=== PATIENT | male | born 1995 | race Two or more races ===

== ENCOUNTER 2017-01-02 23:03 | Emergency (ER) | payer OTHER ==
[~2017-01-02] VITALS: Ht 175.3 cm; Wt 63.5 kg
--- NOTE | 2017-01-02 23:17 | NUR ---
DR. GUZMAN IS AT THE BEDSIDE.
[2017-01-02] MEDS ORDERED: SULFAMETH/TRIMETH 800/160 MG 1 UDTAB TABLET PO ONE ×2 (23:26→23:30)
[2017-01-02 23:38] VITALS: BP 125/73
== END 2017-01-02 23:39 ==
LOC: ER 23:06
DX: L98.499 Non-pressure chronic ulcer of skin of other sites with unspecified severity (principal); G89.29 Other chronic pain; M54.9 Dorsalgia, unspecified; Z88.8 Allergy status to other drugs, medicaments and biological substances
CPT/HCPCS: 99283; A4606; Z7610